=== PATIENT | male | born 1935 | race Two or more races ===

== ENCOUNTER 2021-11-29 18:40 | Emergency (ER) | payer MEDICARE, OTHER ==
[~2021-11-29] VITALS: Ht 185.4 cm; Wt 90.7 kg
[2021-11-29 18:41] VITALS: BP 116/66
== END 2021-11-29 19:48 | disposition home or self-care (01) ==
LOC: ER 18:48
DX: I89.0 Lymphedema, not elsewhere classified (principal); I48.91 Unspecified atrial fibrillation
CPT/HCPCS: 93971

== ENCOUNTER 2021-12-03 10:46 | Inpatient (IN) | payer MEDICARE, OTHER ==
[~2021-12-03] VITALS: Ht 185.4 cm; Wt 91.0 kg
[2021-12-03 12:26] LABS: Eosinophils # (auto) 0.1 10 ^3/uL (0-0.8); Eosinophils % (auto) 1.6 % (0.0-7.0); Monocytes # (auto) 0.5 10 ^3/uL (0-1.3)
[2021-12-03 12:30] LABS: Basophils # (auto) 0.1 10 ^3/uL (0-0.2); Basophils % (auto) 1.7 % (0.0-2.0); Hematocrit 20.1 % (41.0-53.0); Lymphocytes # (auto) 0.7 10 ^3/uL (0.4-5.4); Lymphocytes % (auto) 12.7 % (10.0-50.0); Mean Corpuscular Hemoglobin 33.4 pg (28.0-32.0); Mean Corpuscular Hgb Conc. 33.9 g/dL (32.0-36.0); Mean Corpuscular Volume 98.6 fL (80.0-100.0); Neutrophils # (auto) 4.3 10 ^3/uL (1.6-8.6); Nucleated Red Blood Cells % 0.1 %; Red Blood Cells 2.04 10^6/uL (4.5-5.90); Red Cell Distribution Width 13.3 % (11.8-14.3); White Blood Cell 5.7 10^3/uL (4.4-10.8)
[2021-12-03 12:37] LABS: Hemoglobin 6.8 g/dL (13.5-17.5)
[2021-12-03 12:47] LABS: Albumin 2.9 g/dL (3.4-5.0); Calcium 8.7 mg/dL (8.5-10.1); Potassium 4.4 mmol/L (3.5-5.1)
[2021-12-03 12:49] LABS: BUN/Creatinine Ratio 10.7
[2021-12-03 12:52] LABS: INR 1.3 (0.9-1.15); Partial Thromboplastin Time 28.5 sec (23.6-33.0)
[2021-12-03 12:54] LABS: Bilirubin, Total 0.8 mg/dL (0.2-1.0); Total Protein 5.5 g/dL (6.4-8.2)
[2021-12-03] MEDS ORDERED: TEMAZEPAM 15 MG CAP PO PRN (13:00)
[2021-12-03] MEDS ORDERED: ACETAMINOPHEN 325 MG TAB PO PRN ×2 (13:00)
[2021-12-03] MEDS ORDERED: DOCUSATE SOD 100 MG CAP PO PRN (13:00)
[2021-12-03] MEDS ORDERED: ONDANSETRON HCL 4 MG/2 ML VIAL IV PRN (13:00)
[2021-12-03] MEDS ORDERED: NITROGLYCERIN 0.4 MG SL TAB SL PRN (13:00)
[2021-12-03] MEDS ORDERED: FUROSEMIDE 20 MG/2 ML VIAL IV ONE ×3 (13:30→13:45)
[2021-12-03 13:34] LABS: Urine Bacteria NONE SEEN /hpf (None Seen); Urine Blood Negative /uL (Negative); Urine Hyaline Cast FEW /lpf (0 - 2); Urine Mucus FEW (None Seen); Urine Specific Gravity 1.012 (1.001-1.035); Urine WBC <1 /hpf (0 - 3)
[2021-12-03] MEDS: SODIUM CHLOR 0.9% PF (SALINE LOCK) 10ML VIAL/SYR IV SCH ×2 (14:00→23:00)
[2021-12-03 15:35] VITALS: BP 107/58
[2021-12-03 15:58] VITALS: BP 112/65
[2021-12-03 17:04] LABS: INR 1.34 (0.9-1.15)
[2021-12-03 18:37] VITALS: BP 136/78
[2021-12-03] MEDS: FUROSEMIDE 20 MG/2 ML VIAL IV SCH (18:41)
[2021-12-03 19:50] VITALS: BP 100/56
[2021-12-03 20:21] VITALS: BP 109/55
[2021-12-03 22:30] VITALS: BP 103/62
[2021-12-03] MEDS: PANTOPRAZOLE 40 MG/10 ML VIAL INJ IV SCH (23:00)
[2021-12-04] VITALS (8 sets, daily range): BP systolic 89–118; BP diastolic 44–64
[2021-12-04] MEDS: FUROSEMIDE 20 MG/2 ML VIAL IV SCH ×2 (05:58→20:00)
[2021-12-04] MEDS: SODIUM CHLOR 0.9% PF (SALINE LOCK) 10ML VIAL/SYR IV SCH ×3 (05:58→22:30)
[2021-12-04 06:03] LABS: Basophils # (auto) 0.1 10 ^3/uL (0-0.2); Mean Corpuscular Volume 95.5 fL (80.0-100.0); Nucleated Red Blood Cells % 0.1 %; White Blood Cell 5.1 10^3/uL (4.4-10.8)
[2021-12-04 06:11] LABS: Basophils % (auto) 1.1 % (0.0-2.0); Eosinophils # (auto) 0.2 10 ^3/uL (0-0.8); Eosinophils % (auto) 4.5 % (0.0-7.0); Hematocrit 22.6 % (41.0-53.0); Hemoglobin 7.9 g/dL (13.5-17.5); Lymphocytes # (auto) 1.2 10 ^3/uL (0.4-5.4); Lymphocytes % (auto) 23.2 % (10.0-50.0); Mean Corpuscular Hemoglobin 33.3 pg (28.0-32.0); Mean Corpuscular Hgb Conc. 34.9 g/dL (32.0-36.0); Monocytes # (auto) 0.7 10 ^3/uL (0-1.3); Monocytes % (auto) 13.1 % (0.0-12.0); Neutrophils % (auto) 58.1 % (37.0-80.0); Red Blood Cells 2.37 10^6/uL (4.5-5.90)
[2021-12-04 06:29] LABS: Albumin 2.7 g/dL (3.4-5.0); Calcium 8.7 mg/dL (8.5-10.1); Potassium 3.8 mmol/L (3.5-5.1)
[2021-12-04 06:32] LABS: Bilirubin, Total 1.6 mg/dL (0.2-1.0); Total Protein 4.9 g/dL (6.4-8.2)
[2021-12-04] MEDS: cefTRIAXone 1GM/50ML D5W 50 ML IV SCH (10:15)
[2021-12-04] MEDS: PANTOPRAZOLE 40 MG/10 ML VIAL INJ IV SCH ×2 (10:25→22:30)
[2021-12-04] MEDS: AZITHROMYCIN 500MG/ 250ML 250 ML IV SCH (11:28)
[2021-12-05 05:00] VITALS: BP 110/70
[2021-12-05] MEDS: FUROSEMIDE 20 MG/2 ML VIAL IV SCH ×2 (06:00→18:00)
[2021-12-05] MEDS: SODIUM CHLOR 0.9% PF (SALINE LOCK) 10ML VIAL/SYR IV SCH ×3 (06:02→22:09)
[2021-12-05 06:53] LABS: Eosinophils # (auto) 0.3 10 ^3/uL (0-0.8); Hemoglobin 7.8 g/dL (13.5-17.5); Monocytes # (auto) 0.6 10 ^3/uL (0-1.3); Neutrophils # (auto) 2.5 10 ^3/uL (1.6-8.6)
[2021-12-05 06:55] LABS: Basophils # (auto) 0.1 10 ^3/uL (0-0.2); Basophils % (auto) 1.2 % (0.0-2.0); Hematocrit 22.4 % (41.0-53.0); Lymphocytes # (auto) 1.1 10 ^3/uL (0.4-5.4); Lymphocytes % (auto) 24.7 % (10.0-50.0); Mean Corpuscular Hemoglobin 33.1 pg (28.0-32.0); Mean Corpuscular Hgb Conc. 34.8 g/dL (32.0-36.0); Mean Corpuscular Volume 95.2 fL (80.0-100.0); Monocytes % (auto) 12.9 % (0.0-12.0); Neutrophils % (auto) 55.2 % (37.0-80.0); Red Blood Cells 2.35 10^6/uL (4.5-5.90); White Blood Cell 4.6 10^3/uL (4.4-10.8)
[2021-12-05] MEDS: cefTRIAXone 1GM/50ML D5W 50 ML IV SCH (08:47)
[2021-12-05 09:00] VITALS: BP 96/57
[2021-12-05] MEDS: PANTOPRAZOLE 40 MG/10 ML VIAL INJ IV SCH ×2 (09:45→22:09)
[2021-12-05] MEDS: AZITHROMYCIN 500MG/ 250ML 250 ML IV SCH (09:46)
[2021-12-05] MEDS ORDERED: diphenhdrAMINE HCL 50 MG/1 ML VL ONE (12:49)
[2021-12-05 13:00] VITALS: BP 108/57
[2021-12-05] MEDS ORDERED: LIDOCAINE VISCOUS 2% 15ML UD ONE (13:26)
[2021-12-05] MEDS: fentaNYL CITRATE 100 MCG/2 ML VL ONE ×2 (13:36→13:40)
[2021-12-05] MEDS: MIDAZOLAM HCL 5 MG/ML-1ML VIAL ONE ×2 (13:36→13:42)
[2021-12-05 17:00] VITALS: BP 104/51
[2021-12-05 22:00] VITALS: BP 102/60
[2021-12-06 05:00] VITALS: BP 88/61
[2021-12-06 05:42] LABS: Basophils # (auto) 0 10 ^3/uL (0-0.2); Eosinophils # (auto) 0.3 10 ^3/uL (0-0.8); Hemoglobin 7.7 g/dL (13.5-17.5); Lymphocytes # (auto) 1.3 10 ^3/uL (0.4-5.4); Mean Corpuscular Volume 95.1 fL (80.0-100.0); Monocytes # (auto) 0.6 10 ^3/uL (0-1.3); Neutrophils # (auto) 2.8 10 ^3/uL (1.6-8.6); Red Cell Distribution Width 13.8 % (11.8-14.3)
[2021-12-06 05:45] LABS: Basophils % (auto) 0.9 % (0.0-2.0); Eosinophils % (auto) 6.2 % (0.0-7.0); Lymphocytes % (auto) 26.1 % (10.0-50.0); Mean Corpuscular Hemoglobin 33.5 pg (28.0-32.0); Mean Corpuscular Hgb Conc. 35.2 g/dL (32.0-36.0); Monocytes % (auto) 12.6 % (0.0-12.0); Neutrophils % (auto) 54.2 % (37.0-80.0); Nucleated Red Blood Cells % 0.1 %; Red Blood Cells 2.31 10^6/uL (4.5-5.90); White Blood Cell 5.1 10^3/uL (4.4-10.8)
[2021-12-06 06:00] VITALS: BP 108/68
[2021-12-06] MEDS: SODIUM CHLOR 0.9% PF (SALINE LOCK) 10ML VIAL/SYR IV SCH (06:04)
[2021-12-06] MEDS: FUROSEMIDE 20 MG/2 ML VIAL IV SCH (06:04)
[2021-12-06] MEDS ORDERED: FERR-7 PO (08:52)
[2021-12-06] MEDS ORDERED: PANT40T PO (08:52)
[2021-12-06] MEDS ORDERED: AZIT500I9 IV (08:52)
[2021-12-06 09:00] VITALS: BP 107/67
[2021-12-06] MEDS: cefTRIAXone 1GM/50ML D5W 50 ML IV SCH (09:30)
[2021-12-06] MEDS: PANTOPRAZOLE 40 MG/10 ML VIAL INJ IV SCH (09:56)
[2021-12-06] MEDS: AZITHROMYCIN 500MG/ 250ML 250 ML IV SCH (10:00)
[2021-12-06 10:39] VITALS: BP 108/68
[2021-12-06 13:00] VITALS: BP 123/67
== END 2021-12-06 14:26 | disposition home or self-care (01) | DRG 377 ==
LOC: ER 10:46 → TELE 12:51 → TELE-CENTR 18:23
PROVIDERS: ADMIT Registered Nurse; ATTEND Family Medicine
PROC: 30233N1 Transfusion of Nonautologous Red Blood Cells into Peripheral Vein, Percutaneous Approach (ICD-10-PCS; principal; 2021-12-03)
PROC: 30233L1 Transfusion of Nonautologous Fresh Plasma into Peripheral Vein, Percutaneous Approach (ICD-10-PCS; 2021-12-04)
PROC: 0DB98ZX Excision of Duodenum, Via Natural or Artificial Opening Endoscopic, Diagnostic (ICD-10-PCS; 2021-12-05)
PROC: 0DB68ZX Excision of Stomach, Via Natural or Artificial Opening Endoscopic, Diagnostic (ICD-10-PCS; 2021-12-05)
DX: K29.71 Gastritis, unspecified, with bleeding (principal); J18.9 Pneumonia, unspecified organism; I50.43 Acute on chronic combined systolic (congestive) and diastolic (congestive) heart failure; E44.0 Moderate protein-calorie malnutrition; I48.20 Chronic atrial fibrillation, unspecified; D62 Acute posthemorrhagic anemia; E88.09 Other disorders of plasma-protein metabolism, not elsewhere classified; I95.9 Hypotension, unspecified; Z20.822 Contact with and (suspected) exposure to COVID-19; R42 Dizziness and giddiness; N18.30 Chronic kidney disease, stage 3 unspecified; Z68.26 Body mass index [BMI] 26.0-26.9, adult; Z79.01 Long term (current) use of anticoagulants; Z85.01 Personal history of malignant neoplasm of esophagus; Z85.46 Personal history of malignant neoplasm of prostate; Z88.1 Allergy status to other antibiotic agents; Z88.5 Allergy status to narcotic agent
CPT/HCPCS: 36415; 71045; 74176; 80053; 81001; 83735; 84443; 84484; 85025; 85049; 85384; 85610; 85730; 86850; 86900; 86901; 86920; 87426; 93005; 96374; C9113; G0378; J0696; J2250; J2405

== ENCOUNTER 2023-03-28 17:33 | Inpatient (IN) | payer MEDICARE, OTHER ==
[~2023-03-28] VITALS: Ht 182.9 cm; Wt 75.0 kg
[~2023-03-28 17:33] MED LIST: AZIT500I9 IV; FERR-7 PO; PANT40T PO
[2023-03-28 19:09] LABS: Basophils # (auto) 0 10 ^3/uL (0-0.2); Basophils % (auto) 0.3 % (0.0-2.0); Eosinophils # (auto) 0 10 ^3/uL (0-0.8); Eosinophils % (auto) 0.1 % (0.0-7.0); Hematocrit 43.9 % (41.0-53.0); Hemoglobin 15.1 g/dL (13.5-17.5); Lymphocytes # (auto) 0.7 10 ^3/uL (0.4-5.4); Lymphocytes % (auto) 5.3 % (10.0-50.0); Mean Corpuscular Hemoglobin 36.3 pg (28.0-32.0); Mean Corpuscular Hgb Conc. 34.3 g/dL (32.0-36.0); Mean Corpuscular Volume 105.9 fL (80.0-100.0); Monocytes # (auto) 0.8 10 ^3/uL (0-1.3); Monocytes % (auto) 5.8 % (0.0-12.0); Neutrophils # (auto) 11.5 10 ^3/uL (1.6-8.6); Neutrophils % (auto) 88.5 % (37.0-80.0); Red Blood Cells 4.15 10^6/uL (4.5-5.90); Red Cell Distribution Width 13.6 % (11.8-14.3)
[2023-03-28 19:24] LABS: INR 1.31 (0.9-1.15); Partial Thromboplastin Time 34.4 SEC (24.5-34.5)
[2023-03-28 19:30] LABS: Lactic Acid w/Reflex 3.2 mmol/L (0.4-2.0)
[2023-03-28] MEDS ORDERED: PIPERACILLIN-TAZOB 3.375GM 100 ML IV ONE (19:30)
[2023-03-28] MEDS ORDERED: VANCOMYCIN 1GM/250ML 250 ML IV ONE (19:30)
[2023-03-28] MEDS ORDERED: SODIUM CHLORIDE 0.9% 2,000 ML IV ONE (19:30)
[2023-03-28 20:13] LABS: Albumin 2.9 g/dL (3.4-5.0); Calcium 8.8 mg/dL (8.5-10.1); Potassium 4.3 mmol/L (3.5-5.1)
[2023-03-28 20:22] LABS: BUN/Creatinine Ratio 14.7 (10.0-20.0); Bilirubin, Total 2.2 mg/dL (0.2-1.0); Total Protein 7.4 g/dL (6.4-8.2)
[2023-03-28] MEDS ORDERED: IOHEXOL 350 MG/ML 100ML IJ ONE (22:41)
[2023-03-28] MEDS ORDERED: MORPHINE SULFATE INJ 2 MG/ml SYRG IV PRN (23:45)
[2023-03-28] MEDS ORDERED: NITROGLYCERIN 0.4 MG SL TAB SL PRN (23:45)
[2023-03-28] MEDS ORDERED: ACETAMINOPHEN 325 MG TAB PO PRN (23:45)
[2023-03-28] MEDS ORDERED: DOCUSATE SOD 100 MG CAP PO PRN (23:45)
[2023-03-28] MEDS ORDERED: ONDANSETRON HCL 4 MG/2 ML VIAL IV PRN (23:45)
[2023-03-28] MEDS ORDERED: levoFLOXacin 500MG 100 ML IV ONE (23:55)
[2023-03-29 02:55] LABS: Urine Bacteria NONE SEEN /hpf (None Seen); Urine Blood Negative /uL (Negative); Urine Mucus FEW (None Seen); Urine WBC 2 /hpf (0 - 3)
[2023-03-29 03:00] VITALS: BP 125/73
[2023-03-29 03:06] LABS: Urine Specific Gravity > 1.050 (1.001-1.035)
[2023-03-29] MEDS ORDERED: DexAMETHasone SOD PHOS 10MG/1ML VIAL INJ IV ONE (03:15)
[2023-03-29] MEDS ORDERED: ALBUTEROL SULF 2.5 MG/0.5ML(0.5%) NEB SOLN NEB ONE (03:15)
[2023-03-29] MEDS ORDERED: BUDESONIDE (INHALATION) 0.5 MG/2 ML NEB NEB ONE (03:15)
[2023-03-29] MEDS ORDERED: IPRATROPIUM BROM 0.5 MG/2.5ML INH SOL NEB ONE (03:15)
[2023-03-29 06:10] LABS: Basophils # (auto) 0 10 ^3/uL (0-0.2); Basophils % (auto) 0.2 % (0.0-2.0); Eosinophils # (auto) 0.1 10 ^3/uL (0-0.8); Eosinophils % (auto) 0.4 % (0.0-7.0); Hematocrit 39.6 % (41.0-53.0); Hemoglobin 13.7 g/dL (13.5-17.5); Lymphocytes # (auto) 0.7 10 ^3/uL (0.4-5.4); Lymphocytes % (auto) 5.1 % (10.0-50.0); Mean Corpuscular Hemoglobin 36.2 pg (28.0-32.0); Mean Corpuscular Hgb Conc. 34.5 g/dL (32.0-36.0); Mean Corpuscular Volume 104.9 fL (80.0-100.0); Monocytes # (auto) 0.6 10 ^3/uL (0-1.3); Monocytes % (auto) 4.2 % (0.0-12.0); Neutrophils # (auto) 11.7 10 ^3/uL (1.6-8.6); Neutrophils % (auto) 90.1 % (37.0-80.0); Red Blood Cells 3.78 10^6/uL (4.5-5.90)
[2023-03-29 06:26] LABS: Albumin 2.4 g/dL (3.4-5.0); Calcium 7.9 mg/dL (8.5-10.1); Potassium 3.9 mmol/L (3.5-5.1)
[2023-03-29 06:30] LABS: BUN/Creatinine Ratio 18.1 (10.0-20.0); Total Protein 5.9 g/dL (6.4-8.2)
[2023-03-29] MEDS: ALBUTEROL SULF 2.5 MG/0.5ML(0.5%) NEB SOLN NEB SCH ×5 (06:33→21:57)
[2023-03-29] MEDS ORDERED: ENOXAPARIN SOD 40 MG/0.4 ML SYRINGE SC SCH (10:00)
[2023-03-29] MEDS ORDERED: OSELTAMIVIR 75 MG CAP PO ONE (10:00)
[2023-03-29] MEDS: IPRATROPIUM BROM 0.5 MG/2.5ML INH SOL NEB SCH ×4 (10:04→21:57)
[2023-03-29] MEDS: MULTIPLE VITAMIN TAB PO SCH (10:35)
[2023-03-29] MEDS: ZINC SULFATE 220mg CAP or TAB PO SCH (10:35)
[2023-03-29] MEDS: ASCORBIC ACID 500 MG TAB PO SCH ×2 (10:36→22:04)
[2023-03-29] MEDS: PANTOPRAZOLE 40 MG TAB PO SCH (10:36)
[2023-03-29] MEDS: FUROSEMIDE INJECTION 100 MG in SODIUM CHL 0.9% 100 ML IV SCH (16:15)
[2023-03-29 19:30] VITALS: BP 141/80
[2023-03-29] MEDS: POTASSIUM CHL 20 Meq TABLET PO SCH (22:05)
[2023-03-29] MEDS: levoFLOXacin 250MG 50 ML IV SCH (23:04)
[2023-03-29] MEDS ORDERED: TEMAZEPAM 15 MG CAP PO ONE (23:30)
[2023-03-30] VITALS (7 sets, daily range): BP systolic 120–163; BP diastolic 42–102
[2023-03-30] MEDS ORDERED: FUROSEMIDE INJECTION 10 ML ONE (01:02)
[2023-03-30] MEDS: FUROSEMIDE INJECTION 100 MG in SODIUM CHL 0.9% 100 ML IV SCH ×3 (01:06→19:51)
[2023-03-30] MEDS: ALBUTEROL SULF 2.5 MG/0.5ML(0.5%) NEB SOLN NEB SCH ×6 (02:28→22:33)
[2023-03-30] MEDS: IPRATROPIUM BROM 0.5 MG/2.5ML INH SOL NEB SCH ×6 (02:28→22:33)
[2023-03-30] MEDS: LEVOTHYROXINE SODIUM 100 MCG TAB PO SCH (06:59)
[2023-03-30] MEDS: ZINC SULFATE 220mg CAP or TAB PO SCH (10:13)
[2023-03-30] MEDS: PANTOPRAZOLE 40 MG TAB PO SCH (10:13)
[2023-03-30] MEDS: OSELTAMIVIR 30 MG CAP PO SCH ×2 (10:14→22:11)
[2023-03-30] MEDS: AMIODARONE HCL 200 MG TAB PO SCH (10:15)
[2023-03-30] MEDS: FINASTERIDE 5 MG TAB PO SCH (10:15)
[2023-03-30] MEDS: MULTIPLE VITAMIN TAB PO SCH (10:15)
[2023-03-30] MEDS: ASCORBIC ACID 500 MG TAB PO SCH ×2 (10:15→22:11)
[2023-03-30] MEDS: RIVAROXABAN 10 MG TAB PO SCH (10:16)
[2023-03-30] MEDS: POTASSIUM CHL 20 Meq TABLET PO SCH ×2 (10:16→22:11)
[2023-03-30] MEDS: Ensure HIGH Protein Chocolate 8oz Bottle PO SCH ×2 (13:10→18:00)
[2023-03-30 13:44] LABS: Lactic Acid w/Reflex 2.7 mmol/L (0.4-2.0)
[2023-03-30] MEDS: PIPERACILLIN-TAZOB 3.375GM 100 ML IV SCH ×2 (14:00→22:11)
[2023-03-30 15:35] LABS: Basophils # (auto) 0 10 ^3/uL (0-0.2); Basophils % (auto) 0.1 % (0.0-2.0); Eosinophils # (auto) 0 10 ^3/uL (0-0.8); Hematocrit 43.9 % (41.0-53.0); Lymphocytes # (auto) 0.4 10 ^3/uL (0.4-5.4); Lymphocytes % (auto) 1.9 % (10.0-50.0); Mean Corpuscular Hemoglobin 35.8 pg (28.0-32.0); Mean Corpuscular Hgb Conc. 34.1 g/dL (32.0-36.0); Mean Corpuscular Volume 105.1 fL (80.0-100.0); Monocytes # (auto) 0.7 10 ^3/uL (0-1.3); Monocytes % (auto) 3.4 % (0.0-12.0); Neutrophils % (auto) 94.6 % (37.0-80.0); Red Blood Cells 4.18 10^6/uL (4.5-5.90); Red Cell Distribution Width 14.1 % (11.8-14.3)
[2023-03-30 15:58] LABS: Potassium 3.8 mmol/L (3.5-5.1)
[2023-03-30 16:05] LABS: Albumin 2.5 g/dL (3.4-5.0); Bilirubin, Total 1.2 mg/dL (0.2-1.0); Total Protein 6.7 g/dL (6.4-8.2)
[2023-03-30] MEDS: MORPHINE SULFATE INJ 2 MG/ml SYRG IV PRN (21:35)
[2023-03-30] MEDS: levoFLOXacin 250MG 50 ML IV SCH (23:16)
[2023-03-31 00:35] VITALS: BP 145/70
[2023-03-31] MEDS: MORPHINE SULFATE INJ 2 MG/ml SYRG IV PRN ×3 (01:07→09:18)
[2023-03-31] MEDS: ALBUTEROL SULF 2.5 MG/0.5ML(0.5%) NEB SOLN NEB SCH ×3 (01:51→10:00)
[2023-03-31] MEDS: IPRATROPIUM BROM 0.5 MG/2.5ML INH SOL NEB SCH ×3 (01:51→10:00)
[2023-03-31] MEDS ORDERED: LORazepam 2MG/ML-1ML VIAL IV ONE (02:00)
[2023-03-31 02:15] VITALS: BP 136/67
[2023-03-31 04:20] VITALS: BP 121/72
[2023-03-31] MEDS: FUROSEMIDE INJECTION 100 MG in SODIUM CHL 0.9% 100 ML IV SCH (05:13)
[2023-03-31 05:46] LABS: Eosinophils # (auto) 0 10 ^3/uL (0-0.8)
[2023-03-31 05:50] LABS: Basophils # (auto) 0.1 10 ^3/uL (0-0.2); Basophils % (auto) 0.7 % (0.0-2.0); Eosinophils % (auto) 0.1 % (0.0-7.0); Hematocrit 42.8 % (41.0-53.0); Hemoglobin 14.9 g/dL (13.5-17.5); Lymphocytes # (auto) 0.4 10 ^3/uL (0.4-5.4); Mean Corpuscular Hemoglobin 36.5 pg (28.0-32.0); Mean Corpuscular Hgb Conc. 34.9 g/dL (32.0-36.0); Mean Corpuscular Volume 104.4 fL (80.0-100.0); Monocytes # (auto) 0.5 10 ^3/uL (0-1.3); Neutrophils # (auto) 17.1 10 ^3/uL (1.6-8.6); Neutrophils % (auto) 94.2 % (37.0-80.0); White Blood Cell 18.2 10^3/uL (4.4-10.8)
[2023-03-31] MEDS: PIPERACILLIN-TAZOB 3.375GM 100 ML IV SCH (05:58)
[2023-03-31 06:01] VITALS: BP 122/71
[2023-03-31 06:01] LABS: BUN/Creatinine Ratio 23.1 (10.0-20.0); Calcium 8.7 mg/dL (8.5-10.1); Magnesium 2.3 mg/dL (1.6-2.6); Potassium 4.3 mmol/L (3.5-5.1)
[2023-03-31] MEDS: LEVOTHYROXINE SODIUM 100 MCG TAB PO SCH (06:34)
[2023-03-31 08:20] VITALS: BP 92/56
[2023-03-31] MEDS: Ensure HIGH Protein Chocolate 8oz Bottle PO SCH (08:44)
[2023-03-31] MEDS ORDERED: LORazepam 2MG/ML-1ML VIAL IV PRN (09:15)
[2023-03-31 09:18] VITALS: BP 113/37
[2023-03-31] MEDS: FINASTERIDE 5 MG TAB PO SCH (10:00)
[2023-03-31] MEDS: RIVAROXABAN 10 MG TAB PO SCH (10:00)
[2023-03-31] MEDS: OSELTAMIVIR 30 MG CAP PO SCH (10:00)
[2023-03-31] MEDS: ASCORBIC ACID 500 MG TAB PO SCH (10:00)
[2023-03-31] MEDS: PANTOPRAZOLE 40 MG TAB PO SCH (10:00)
[2023-03-31] MEDS: MULTIPLE VITAMIN TAB PO SCH (10:00)
[2023-03-31] MEDS: POTASSIUM CHL 20 Meq TABLET PO SCH (10:00)
[2023-03-31] MEDS: ZINC SULFATE 220mg CAP or TAB PO SCH (10:00)
[2023-03-31] MEDS: AMIODARONE HCL 200 MG TAB PO SCH (10:00)
[2023-03-31] MEDS ORDERED: DOXYCYCLINE 100 MG TAB/CAP PO SCH (22:00)
[2023-04-01] MEDS ORDERED: DexAMETHasone INJECTION 10 MG in D5W 5% 50 ML IV SCH (10:00)
== END 2023-03-31 09:37 | DRG 871 ==
LOC: ER 17:33 → EDBD 17:33 → TELE 23:47
PROVIDERS: ADMIT Internal Medicine; ATTEND Internal Medicine
PROC: 5A09457 Assistance with Respiratory Ventilation, 24-96 Consecutive Hours, Continuous Positive Airway Pressure (ICD-10-PCS; principal; 2023-03-29)
DX: A41.9 Sepsis, unspecified organism (principal); J10.00 Influenza due to other identified influenza virus with unspecified type of pneumonia; J96.01 Acute respiratory failure with hypoxia; N17.0 Acute kidney failure with tubular necrosis; J18.9 Pneumonia, unspecified organism; J90 Pleural effusion, not elsewhere classified; N18.2 Chronic kidney disease, stage 2 (mild); R07.89 Other chest pain; D50.0 Iron deficiency anemia secondary to blood loss (chronic); R80.9 Proteinuria, unspecified; J84.10 Pulmonary fibrosis, unspecified; Z20.822 Contact with and (suspected) exposure to COVID-19; I48.91 Unspecified atrial fibrillation; I50.9 Heart failure, unspecified; Z82.49 Family history of ischemic heart disease and other diseases of the circulatory system; Z98.61 Coronary angioplasty status; Z88.8 Allergy status to other drugs, medicaments and biological substances; I25.2 Old myocardial infarction; Z85.01 Personal history of malignant neoplasm of esophagus; Z85.46 Personal history of malignant neoplasm of prostate; Z88.6 Allergy status to analgesic agent
CPT/HCPCS: 36415; 36600; 71045; 71275; 76604; 80048; 80053; 81001; 82805; 83605; 83735; 83880; 84484; 85025; 85379; 85610; 85730; 87040; 87426; 87804; 93005; 93970; 94640; 94660; 96365; 96367; G0378; G9035; J1100; J1956; J2405; J2543